=== PATIENT | male | born 1955 | race Caucasian/White ===

== ENCOUNTER 2023-10-19 13:00 | Day surgery (SDC) | payer MEDICARE, BC ==
[2023-10-19] MEDS ORDERED: PROPOFOL 10 MG/ML 20 ML VIAL IV ONE (13:47)
[2023-10-19] MEDS ORDERED: LIDOCAINE 1% INJ 10MG/ML (20 ML MDV) ONE (13:47)
--- NOTE | 2023-10-26 15:55 | OP ---
OPERATIVE REPORT DATE OF SERVICE : 10/19/2023 REQUESTING PHYSICIAN: Dorie Silva. HISTORY OF PRESENT ILLNESS: The patient is a 68-year-old pleasant white male scheduled for an elective upper endoscopy as a part of evaluation of longstanding history of GERD. He is on Protonix 40 mg daily and doing well. He is scheduled for an upper endoscopy to rule out complicated reflux disease. PROCEDURE PERFORMED: Esophagogastroduodenoscopy with biopsy. PREOPERATIVE DIAGNOSIS: Longstanding history of GERD. ANESTHESIA: IV sedation per Anesthesia. DESCRIPTION OF PROCEDURE: After informed consent was obtained from the patient, he was brought into the endoscopy unit. IV conscious sedation was administered by Anesthesia and continuous monitoring. Initially, the Olympus CF-180 video endoscope was inserted into the mouth and esophagus and intubated without any difficulty and was gradually advanced into the stomach and duodenum and carefully examined. Bulb and the second part of the duodenum appeared normal. The scope at this time was withdrawn to the stomach, adequately insufflated with air and upon careful examination, mucosa of the antrum and body appeared normal. On retroflexion, in the fundus of the stomach, there were 2 small gastric polyps, which were biopsied. The scope was then withdrawn to the esophagus. The GE junction was located at 41 cm from the incisors. It appeared regular with no erythema, erosions, or ulcerations. Small hiatal hernia noted. Rest of the esophagus appeared normal. The patient tolerated the procedure well. IMPRESSION: 1. Small sliding-type hiatal hernia, but no evidence of esophagitis or Serra's esophagus. 2. Gastric polyps, status post biopsies. RECOMMENDATIONS: Findings of this examination were discussed with the patient as well as the family. He was advised to follow up with the biopsy results. Continue with Protonix 40 mg daily and follow anti-reflux measures. MMODL / IJN: [id number] /
== END 2023-10-19 14:45 ==
LOC: ORWHC2ENDO 13:00
PROVIDERS: ATTEND Internal Medicine Gastroenterology
DX: K31.7 Polyp of stomach and duodenum (principal); K44.9 Diaphragmatic hernia without obstruction or gangrene; K21.9 Gastro-esophageal reflux disease without esophagitis; E78.5 Hyperlipidemia, unspecified; E07.9 Disorder of thyroid, unspecified; F17.290 Nicotine dependence, other tobacco product, uncomplicated; Z79.890 Hormone replacement therapy; Z79.899 Other long term (current) drug therapy
CPT/HCPCS: 43239; 88305